=== PATIENT | male | born 1955 | race Caucasian/White ===

== ENCOUNTER 2016-10-22 14:07 | Emergency (ER) | payer OTHER ==
[2016-10-22 14:18] VITALS: BP 137/64
--- NOTE | 2016-10-22 15:15 | UC ---
Addy Whitt Rebecca, scribed for Isabel Leon MD on 10/22/16 at 1437 . Back Pain HPI - HPI Summary HPI Summary: Pt is a 61 y/o M who presents to [facility] c/o lumbar back pain. Pain began suddenly at 0800 this morning while bending over. Pain is discrete to the lumbar back without radiation and is currently moderate, ranked 3/10 and characterized as stabbing initially and now stiffness/ache. Reports he can feel his low back spasming. Has been treating the pain with Ibuprofen (600 mg this a.m. and 600 mg this afternoon) and "really old" Flexeril which he believes was too old to be effective. Additionally applied ice and a heating pad. Sx aggravated by position change, sitting and laying down, alleviated by walking and heat. Denies any weakness, hematuria and bowel or bladder incontinence. Negative remote trauma. Prior episode of back pain 14 years ago while helping somebody push their car, which was alleviated by Flexeril with no recurrences. Unsure if current sx are similar to prior episode of back pain. Confirms he has been able to previously tolerate narcotics without nausea. No leg weakness Pt's medications reviewed at this visit - History of Current Complaint Chief Complaint: UCBackPain Stated Complaint: BACK PAIN Time Seen by Provider: 10/22/16 14:36 Hx Obtained From: Patient Onset/Duration: Sudden Onset, Lasting Hours, Still Present Severity Currently: Mild Pain Intensity: 3 Pain Scale Used: 0-10 Numeric Back Pain: Is Discrete @ - Lumbar back Character: Sharp - Initially, Aching, Spasmodic, Stiffness Alleviating: Heat Associated Signs And Symptoms: Positive: Negative. Negative: Weakness, Bladder Incontinence, Bowel Incontinence Related History: Previous Back Injury - 14 years ago, unsure if current sx are similar to prior episode - Allergies/Home Medications Allergies/Adverse Reactions: Allergies Allergy/AdvReac Type Severity Reaction Status Date / Time Ciprofloxacin [From Cipro] Allergy Mild Rash Verified 10/22/16 14:19 ENVIRONMENTAL/SEASONAL Allergy SNEEZE,RUNNY Uncoded 08/21/15 11:51 HAYFEVER NOSE, ITCHY WATERY EYES, CONGESTION Home Medications: Home Medications Cyclobenzaprine TAB* [Flexeril 10 MG TAB*] 10 mg PO PRN 10/22/16 [History] PMH/Surg Hx/FS Hx/Imm Hx Previously Healthy: Yes Endocrine History: Dyslipidemia - HLD Cardiovascular History: Hypertension GI/ History: Other Other GI/ History: IBS - Surgical History Surgical History: Yes Surgery Procedure, Year, and Place: L achillies ruptur repair - Family History Known Family History: Positive: Other - Peptic ulcer disease - Social History Lives: With Family Alcohol Use: Daily Alcohol Amount: 1-2 BEERS Substance Use Type: None Smoking Status (MU): Never Smoked Tobacco Review of Systems Constitutional: Negative Skin: Negative Eyes: Negative ENT: Negative Respiratory: Negative Cardiovascular: Negative Gastrointestinal: Negative Genitourinary: Negative Motor: Negative Neurovascular: Negative Musculoskeletal: Other: - low back, lumbar pain Neurological: Negative Psychological: Negative All Other Systems Reviewed And Are Negative: Yes - Comments Additional Review of Systems Comments: NEGATIVE: Any weakness, hematuria and bowel or bladder incontinence. Physical Exam Triage Information Reviewed: Yes Appearance: Well-Appearing, Well-Nourished, Pain Distress - mild discomfort with movement, position changes Vital Signs: Initial Vital Signs Temp 98.5 F 10/22/16 14:12 Pulse 63 10/22/16 14:12 Resp 16 10/22/16 14:12 BP 137/64 10/22/16 14:12 Pulse Ox 98 10/22/16 14:12 Vital Signs Reviewed: Yes Eye Exam: Normal ENT: Positive: Hearing grossly normal Neck: Positive: Supple, Nontender Respiratory: Positive: Chest non-tender, Lungs clear, Normal breath sounds, No respiratory distress, No accessory muscle use Cardiovascular Exam: Normal Cardiovascular: Positive: RRR, No Murmur, Other: - 2+ DP, PT Musculoskeletal: Positive: Other: - + SLE with mild discomfort left low leatha + flex/ext knee b/l with mild discomfort low back no pain spinous process c/t/l/s + mild paraspinal tenderness low, lumbar area with direct palp Neurological Exam: Normal Neurological: Positive: Alert, Muscle Tone Normal, Other: - 2+ patellar b/l without clonus + b/l equal sensation throughout Psychological Exam: Normal Psychological: Positive: Normal Response To Family Skin Exam: Normal Back Pain Course/Dx - Course Course Of Treatment: Patient medications reviewed this visit. Pt with mild lower lumbar paraspinal muscle spasm s/p twisting and bending this morning. Pt neurovascular intact without radicular sx. recommend motrin/apap. flexerol. norco prn. d/w pt precautions with Traer. heat. stretch. return precautions reviewed. pt comfortable and in agreement with plan - Differential Dx/Diagnosis Provider Diagnoses: lumbar paraspinal muscle spasm Discharge - Discharge Plan Condition: Stable Disposition: HOME Prescriptions: Cyclobenzaprine TAB* [Flexeril 10 MG TAB*] 5 mg PO TID PRN #15 tab PRN Reason: Spasms HYDROcodone/ACETAMIN 5-325 MG* [Traer 5-325 TAB*] 1 - 2 tab PO Q8H PRN #15 tab MDD 6 PRN Reason: Pain Patient Education Materials: Low Back Strain (ED), Lower Back Exercises (ED) Referrals: Aguila Simpson MD [Medical Doctor] - Malorie Robertson MD [Medical Doctor] - Additional Instructions: - Okay to alternate ibuprofen (Advil, Motrin) 600mg and Tylenol product ( Tylenol or Traer) every 3hours as needed for pain. Take with food. Do NOT take for more than 4-[address], operate machinery or drink alcohol while taking Traer. This medication may cause constipation - use a stool softner as needed. Do not take while taking Clonazepam -Take Flexeril - muscle relaxer as prescribed - do NOT drive, operate machinery or drink alcohol while taking Flexeril. Do NOT Take flexeril within 6 hours of taking clonazepam -Apply moist heat to your back for 20 minutes at a time, 4-5 times a day. Once your muscles are warm, slow gentle stretching exercises are important -Contact your doctor today to arrange a follow-up appointment next week. -If you pain is uncontrolled , you develop numbness or tingling down your legs or changes to bowel or bladder - go to an emergency department for further testing The documentation as recorded by the Addy ashraf Rebecca accurately reflects the service I personally performed and the decisions made by me, Isabel Leon MD.
== END 2016-10-22 15:08 | disposition home or self-care (01) ==
LOC: UCEAST 14:07
DX: M62.830 Muscle spasm of back (principal); E78.5 Hyperlipidemia, unspecified; I10 Essential (primary) hypertension
CPT/HCPCS: 99212; G0463

== ENCOUNTER 2018-09-20 06:26 | Day surgery (SDC) | payer OTHER ==
--- NOTE | 2018-09-12 17:45 | HP ---
PREOPERATIVE HISTORY AND PHYSICAL: DATE OF SURGERY/ADMISSION: 09/20/18 [facility] DATE OF OFFICE VISIT/ENCOUNTER: 08/21/18 ATTENDING SURGEON: Antoinette Castro MD * (DICTATED BY FLORENCIA VELA) PROCEDURE: Arthroscopy left wrist, triangular fibrocartilage complex debridement. HISTORY OF PRESENT ILLNESS: This is a 63-year-old male who has had ongoing bilateral wrist pain, left worse than right, which began after playing golf in September 2017. He was hitting golf balls out of tall grass and started to develop wrist pain bilaterally. He had an MRI arthrogram performed for ulnar-sided wrist pain, which showed degenerative TFCC tears in both wrists. He has attended physical therapy. He has tried taping his wrists. He also has tried not golfing and the pain does seem to lessen; however, it has not gone away and he is not able to do the things he would like to do. He has, at this time, consented to proceed with surgical intervention for his left wrist in the form of an arthroscopy and a TFCC debridement. PAST MEDICAL HISTORY: 1. Hypertension. 2. Asthma/allergies. 3. GERD. 4. Hypercholesterolemia. PAST SURGICAL HISTORY: 1. Left Achilles tendon repair. 2. Three colon polyps removed. CURRENT MEDICATIONS: 1. Albuterol 2 puffs 4 times a day p.r.n. 2. Atenolol 25 mg half tab daily. 3. Claritin 5 mg daily. 4. Desloratadine 5 mg daily. 5. Fenofibrate 145 mg daily. 6. Fish oil Burpless 1000 mg 2 tabs daily. 7. Klonopin 1 mg 1-1/2 tabs q.h.s. 8. Levocetirizine dihydrochloride 5 mg daily. 9. Lumigan 0.01% one drop q.h.s. 10. Magnesium 500 mg daily. 11. Naproxen 500 mg q.12 hours p.r.n. 12. Nexium 40 mg daily. 13. Protopic 0.1% apply topically every day p.r.n. 14. Systane 0.4%/0.3% one drop each eye p.r.n. 2 hours. 15. Valsartan/hydrochlorothiazide 80/12.5 mg daily. 16. Voltaren 1% 2 g to affected area twice a day p.r.n. 17. Zetia 10 mg 1 tab daily. ALLERGIES: CIPROFLOXACIN and PRAVASTATIN, both cause hives/rash. FAMILY MEDICAL HISTORY: Diabetes, heart disease, cancer. SOCIAL HISTORY: The patient is employed at [employer], he teaches tumbling and gymnastics. He denies tobacco use and recreational drug use. He drinks alcohol on occasion. REVIEW OF SYSTEMS: Negative for general, cephalic, cardiovascular, respiratory , GI, , other musculoskeletal, integumentary, endocrine, neurologic and hematologic symptoms. Infectious Disease: Negative for MRSA, hepatitis C, HIV. PHYSICAL EXAMINATION GENERAL: Well-developed, well-nourished 63-year-old male, in no acute distress. VITAL SIGNS: Height 5 feet 7 inches, weight 180 pounds, pulse rate 68, blood pressure 132/70. HEENT: Normocephalic, atraumatic. Pupils are equal, round, and reactive to light and accommodation. Extraocular movements are intact. Throat is clear. NECK: Supple. No palpable lymph nodes. PULMONARY: Lungs are clear to auscultation bilaterally. No wheezes, rales, or rhonchi. CARDIOVASCULAR: Regular rate and rhythm. S1, S2. No murmurs, rubs, or gallop. No edema. ABDOMEN: Positive bowel sounds, soft, and nontender. MUSCULOSKELETAL: On exam of his bilateral wrists, there is no swelling, no ecchymosis. He has tenderness to palpation at the distal radial ulnar joint and just past the distal ulna. He has pain resisting wrist ulnar deviation. He has increased pain with full extension with weightbearing. He has good motion in his fingers. Skin is intact. Neurovascular function is intact. NEUROLOGICAL: Alert and oriented x3. Cranial nerves II through XII are intact. Sensation is intact to light touch. IMAGING STUDIES: X-rays AP, lateral and oblique of both wrists show very slight ulnar positive variance, but otherwise looked normal. MRI of bilateral wrists show degenerative TFCC tears. IMPRESSION: Left wrist triangular fibrocartilage complex degenerative tear. PLAN: The patient is scheduled to undergo an arthroscopy of left wrist with TFCC debridement with Dr. Castro on 09/20/18. He will return to the office 10 days postop for followup and suture removal. A prescription for Ultracet was e- scribed to the patient's pharmacy for postoperative pain management. FLORENCIA VELA [id number]/[facility] #: [id number] ALICIA
[~2018-09-20 06:26] MED LIST: Buffered Lidocaine 1% SYRIN* 1 ML/SYRINGE INTRADERM ONE; Dexamethasone IV* 4 MG/ML 1 ML (4 MG) IV SLOW PU ONE; Famotidine IV* 10 MG/ML 2 ML (20 mg) IV ONE; Lactated Ringers 1000 ML Bag* 1,000 ML IV SCH
[2018-09-20] MEDS ORDERED: Dexamethasone IV* 4 MG/ML 1 ML (4 MG) ONE (06:35)
[2018-09-20] MEDS ORDERED: Famotidine IV* 10 MG/ML 2 ML (20 mg) ONE (06:35)
[2018-09-20] MEDS ORDERED: Lidocaine 0.5%* 50 ML SDV ONE (07:09)
[2018-09-20] MEDS ORDERED: Midazolam* 1 MG/ML 2 ML VIAL (2 MG) ONE (07:12)
[2018-09-20] MEDS ORDERED: fentaNYL* 50 MCG/ML 2 ML VIAL (100 MCG VIAL) ONE (07:12)
[2018-09-20] MEDS ORDERED: Buffered Lidocaine 1% SYRIN* 1 ML/SYRINGE INTRADERM ONE (07:17)
[2018-09-20] MEDS ORDERED: Bupivacaine 0.5% SDV PF* 30ML VIAL ONE (07:20)
[2018-09-20] MEDS ORDERED: Ketorolac INJ* 30 MG/ML 1 ML VIAL IV PRN (08:00)
[2018-09-20] MEDS ORDERED: Ondansetron INJ* 2 MG/ML VIAL IV PRN (08:00)
[2018-09-20] MEDS ORDERED: Naloxone* 0.4 MG/ML 1 ML VIAL IV PRN (08:00)
[2018-09-20] MEDS ORDERED: fentaNYL* 50 MCG/ML 2 ML VIAL (100 MCG VIAL) IV PRN (08:00)
[2018-09-20 08:52] VITALS: BP 109/73
--- NOTE | 2018-09-20 17:12 | OP ---
DATE OF OPERATION: 09/20/18 [facility] DATE OF : 59 SURGEON: Antoinette Castro MD BONBON DIPPER: FLORENCIA Lynn ANESTHESIA: IV regional. PRE-OP DIAGNOSIS: Triangular fibrocartilage complex tear of the left wrist. POST-OP DIAGNOSES: 1. Triangular fibrocartilage complex tear of the left wrist. 2. Scapholunate ligament tear with degenerative arthritis. OPERATIVE PROCEDURE: Left wrist arthroscopy and triangular fibrocartilage complex debridement. ESTIMATED BLOOD LOSS: Zero. TOURNIQUET TIME: About 35 minutes. INDICATIONS FOR PROCEDURE: David is a 63-year-old man who has bilateral wrist pain and stiffness. He has had increased wrist pain in the left since injuring his wrist while golfing. He has failed conservative treatment, presents now for left wrist arthroscopy and debridement. DESCRIPTION OF PROCEDURE: The patient was brought to the operating room, was given an IV regional anesthetic with a tourniquet around his left upper arm. Skin of his left upper extremity was prepped and draped in the usual sterile fashion. The radiocarpal joint was filled with 10 cc of Marcaine 0.5% plain. A stab incision was made distal to Milton tubercle. We dissected bluntly through the subcutaneous tissue with a mosquito clamp. The arthroscope was then placed in the radiocarpal joint. There was a complete tear of the scapholunate ligament which was chronic and allowed access to the midcarpal joint from the radiocarpal joint. There were degenerative changes on the lunate but the capitate head articular surface was intact. The scaphoid fossa articular surface of the radius had some cartilage wear. The lunate fossa was intact. There was a complex tear of the TFCC. A second portal was created in the 4-5 interval and a 2.0 gator shaver was placed into the joint. The TFCC tear and surrounding synovitis was debrided. The arthroscopy instruments were removed and then the wounds were closed in an interrupted fashion with 4-0 nylon suture. The wound was dressed with Xeroform, 4x4, Webril, and an Cuauhtemoc wrap. The patient tolerated the procedure well and was brought to the recovery room in good condition. [id number]/[facility] #: [id number] [facility]
== END 2018-09-20 09:18 | disposition home or self-care (01) ==
LOC: OREAST 06:26
PROVIDERS: ATTEND Orthopaedic Surgery
DX: S63.592A Other specified sprain of left wrist, initial encounter (principal); I10 Essential (primary) hypertension; J45.909 Unspecified asthma, uncomplicated; K21.9 Gastro-esophageal reflux disease without esophagitis; E78.00 Pure hypercholesterolemia, unspecified; X50.9XXA Other and unspecified overexertion or strenuous movements or postures, initial encounter; Y93.53 Activity, golf; Y92.39 Other specified sports and athletic area as the place of occurrence of the external cause
CPT/HCPCS: J1100; J2250; J3010; J3490

== ENCOUNTER 2019-05-10 06:57 | Day surgery (SDC) | payer OTHER ==
[~2019-05-10 06:57] MED LIST changes: +Acetaminophen TAB* 325 MG PO PRN; -Dexamethasone IV* 4 MG/ML 1 ML (4 MG) IV SLOW PU ONE; -Famotidine IV* 10 MG/ML 2 ML (20 mg) IV ONE; -Lactated Ringers 1000 ML Bag* 1,000 ML IV SCH; +mitoMYcin PWD* 0.2 MG in Sterile Water for Inj* 1 ML OPHTHALMIC SCH
[2019-05-10] MEDS ORDERED: Carbachol 0.01% OPH.SOL* 1.5 ML OPHTH.SOLN ONE (07:18)
[2019-05-10] MEDS ORDERED: Midazolam* 1 MG/ML 2 ML VIAL (2 MG) ONE ×2 (08:26→08:37)
[2019-05-10] MEDS ORDERED: Povidone Iodine 5% OPTH* 30 ML BTL ONE ×2 (09:29→10:08)
[2019-05-10] MEDS ORDERED: Ketorolac 0.5% OPHTH (NF) 0.5 % 5 ML BTL ONE (09:29)
[2019-05-10] MEDS ORDERED: acetaZOLAMIDE TAB* 250 MG ONE (09:29)
[2019-05-10] MEDS ORDERED: Phenylephrine OPHTH SOL 2.5%* 2 ML ONE (09:29)
[2019-05-10] MEDS ORDERED: Neomycin/Polymy/Dex OPTH.SUSP* MAXITROL 0.1% 5 ML ONE ×2 (09:29→10:08)
[2019-05-10] MEDS ORDERED: Lidocaine 2% w/ EPI 1:200,000* 20 ML SDV VIAL ONE ×2 (09:29→10:08)
[2019-05-10] MEDS ORDERED: Lidocaine 1% MPF ** 5 ML VIAL ONE ×2 (09:29→10:08)
[2019-05-10] MEDS ORDERED: Cyclopentolate 1% OPTH.SOL* 2 ML BTL ONE (09:29)
[2019-05-10] MEDS ORDERED: Proparacaine 0.5% OPHTH.SOL* 15 ML BTL ONE ×2 (09:30→10:08)
[2019-05-10 09:37] VITALS: BP 115/81
--- NOTE | 2019-05-10 13:21 | OP ---
DATE OF OPERATION: 05/10/19 [facility] DATE OF : 59 SURGEON: Ortiz Vergara MD ANESTHESIA: Local with MAC. PRE-OP DIAGNOSIS: Uncontrolled glaucoma, left eye. POST-OP DIAGNOSIS: Uncontrolled glaucoma, left eye. OPERATIVE PROCEDURE: XEN stent, left eye. COMPLICATIONS: None. DESCRIPTION OF PROCEDURE: The patient was prepped and draped in the usual sterile fashion. Lid speculum was placed. 6-0 silk traction suture placed through superior limbus, eye rotated inferiorly. Hernandez were made with the calipers at 7 and 2.5 mm posterior to the limbus at 12 o'clock. Paracentesis made at the 2 o'clock position. Anterior chamber irrigated with Miostat. XEN stent was checked, inserted subconjunctivally at the 7 mm james, advanced to engage sclera at the 2.5 mm james and then advanced into the anterior chamber and deployed using the solar installation manager. Immediate bleb formation developed. Mitomycin C 0.2 mg/mL, 0.2 mL injected subconjunctivally in the superior fornix. Anterior chamber irrigated with balanced salt solution. Gonioscopy used to confirm position and a traction suture removed. [id number]/[facility] #: [id number] [facility]
== END 2019-05-10 09:28 | disposition home or self-care (01) ==
LOC: OREAST 06:57
PROVIDERS: ATTEND Specialist
DX: H40.1123 Primary open-angle glaucoma, left eye, severe stage (principal); I10 Essential (primary) hypertension; E78.00 Pure hypercholesterolemia, unspecified; J30.2 Other seasonal allergic rhinitis; K21.9 Gastro-esophageal reflux disease without esophagitis; M19.90 Unspecified osteoarthritis, unspecified site
CPT/HCPCS: A9270-GY; C1725; J2250; J9280

== ENCOUNTER 2019-06-03 10:28 | Emergency (ER) | payer OTHER ==
--- OUTSIDE RECORDS SUMMARY | 2019-06-03 10:51 | XMS REPORT | Continuity of Care Document ---
:1955 External Reference #:[id number] Author Name KATHLEEN Cabezas (transmitted by agent of provider Tim Heredia) Address [address] [address] Care Team Providers Name Role Phone Malorie Robertson M.D. - Family Medicine Care Team Information Rooter Operator [phone] Problems Active Problems Provider Date Moderate persistent asthma with Tim Heredia MD Onset: 05/28/2015 (acute) exacerbation Allergic rhinitis due to pollen Tim Heredia MD Onset: 11/13/2015 Allergic rhinitis Tim Heredia MD Onset: 11/13/2015 Mild intermittent asthma KATHLEEN Cabezas Onset: 12/01/2016 Atopic dermatitis KATHLEEN Cabezas Onset: 12/01/2016 Upper respiratory infection KATHLEEN Cabezas Onset: 05/08/2019 Acute sinusitis KATHLEEN Cabezas Onset: 05/31/2018 Social History Type Date Description Comments Sex Unknown Tobacco Use Start: Unknown Patient has never smoked Smoking Status Reviewed: 05/08/19 Patient has never smoked Allergies, Adverse Reactions, Alerts Active Allergies Reaction Severity Comments Date Cipro 05/28/2015 Medications Active Medications SIG Qnty Indications Ordering Provider Date Levocetirizine take one tablet 30tabs Tim Freedman 03/08/2019 Dihydrochloride by mouth every MD Yan 5mg day in the Tablets evening Clarithromycin take one tablet 28tabs Tim Freedman 05/31/2018 500mg by mouth q12 MD Yan Tablets hours x14 days. Xopenex HFA 2 puffs every 4 15gm Tim A. 03/18/2018 45mcg/Act as needed MD Yan Aerosol Desloratadine Take One Tablet 30tabs J45.41 Bola Colunga, 01/24/2018 5mg Tablets By Mouth Every RPA-C Morning Xyzal 1 tab by mouth 90tabs J45.41 Tim A. 05/28/2015 5mg Tablets every evening MD Yan Prednisolone Acetate Instill 1 Drop Unknown 1% Into Left Eye Suspension Three Times A Day Taper as Directed Brimonidine Tartrate Insttill 1 Drop Unknown Into The Left 0.15% Solution Eye Two Times A Day Rocklatan Instill One Unknown 0.02-0.005% Drop Into Both Solution Eyes Every Night Magnesium 27 1 tablet daily Unknown 500(27Mg) mg Tablets Fish Oil/Super 4 capsules Unknown Potent/No Burp daily 1000mg Capsules Systane Unknown Atenolol take 1 tablet Unknown 25mg Tablets (25 mg) by oral route once daily Diovan take 1 tablet Unknown 80mg Tablets (80 mg) by oral route once daily Nexium Unknown 40mg Capsules DR Clonazepam take 1 tablet Unknown 0.5mg Tablets (0.5 mg) by oral route 2 times per day Zetia take 1 tablet Unknown 10mg Tablets (10 mg) by oral route once daily Fenofibrate take 1 tablet Unknown 160mg Tablets (160 mg) by oral route once daily Immunizations Description No Information Available Vital Signs Date Vital Result Comment 05/08/2019 4:40pm BP Systolic 166 mmHg BP Diastolic 95 mmHg Height 67 inches 5'7" Weight 180.00 lb BMI (Body Mass Index) 28.2 kg/m2 Heart Rate 65 /min Respiratory Rate 16 /min Body Temperature 97.4 F O2 % BldC Oximetry 96 % 06/20/2018 9:34am BP Systolic 120 mmHg BP Diastolic 80 mmHg Height 67 inches 5'7" Weight 180.00 lb BMI (Body Mass Index) 28.2 kg/m2 Heart Rate 61 /min Respiratory Rate 18 /min Body Temperature 96.5 F O2 % BldC Oximetry 98 % Results Test Acquired Date Facility Test Result H/L Range Note Laboratory test 05/08/2019 [facility] <pending> finding [address] [place] [address] [phone] Order 05/08/2019 [facility] Nitric Oxide <pending> Procedures Date Code Description Status 05/08/2019 98680 Nitric Oxide Gas Determination Completed Medical Devices Description No Information Available Encounters Type Date Location Provider Dx Diagnosis Office Visit 05/08/2019 [facility] Lyric Santos J06.9 Acute upper 4:30p Fenstermacher, respiratory infection, RPA-C unspecified Assessments Date Code Description Provider 05/08/2019 J06.9 Acute upper respiratory infection, Lyric Bergerstermacher, RPA-C unspecified Plan of Treatment 05/08/2019 - Lyric Bergerstermmireya, RPA-CJ06.9 Acute upper respiratory infection, unspecifiedComments:Patient with URI. Patient is scheduled for eye surgery later this week. I will order rapid respiratory panel to screen for Influenza or atypical bacterial infection. I suspect patient has the common cold. He can continue supportive care and Xopenex Q4 hours as needed for breakthrough cough or chest congestion. If patient develops fever or worsening respiratory symptoms, I would advise rescheduling his surgery.Follow up:If condition worsens. Functional Status Description No Information Available Mental Status Description No Information Available Referrals Description No Information Available
--- OUTSIDE RECORDS SUMMARY | 2019-06-03 10:51 | XMS REPORT | Continuity of Care Document ---
:1955 External Reference #:[id number] Author Name Ortiz Vergara M.D. Address [address] [place] [address] Care Team Providers Name Role Phone Malorie Hale M.D. - Family Medicine Care Team Information Aviation Safety Technician [phone] Dane Kendall M.D. - Neurology Care Team Information Aviation Safety Technician [phone] Problems Active Problems Provider Date Pure hypercholesterolemia Onset: Essential hypertension Onset: Eczema Onset: Seasonal allergy Onset: Primary open angle glaucoma Marissa Leon O.D. Onset: 10/24/2014 Severe / Advanced / End Stage Glaucoma Marissa Leon O.D. Onset: 2014 Primary open angle glaucoma of left eye Ortiz Vergara M.D. Onset: 2016 Primary open angle glaucoma of right eye Ortiz Vergara M.D. Onset: 2016 Social History Type Date Description Comments Sex Unknown ETOH Use Consumes 1-2 glasses of wine per day Tobacco Use Start: Unknown Patient has never smoked Recreational Drug Use Denies Drug Use Smoking Status Reviewed: 06/01/19 Patient has never smoked Allergies, Adverse Reactions, Alerts Active Allergies Reaction Severity Comments Date Cipro ACTING OUT MY DREAMS 10/24/2014 Medications Active Medications SIG Qnty Indications Ordering Provider Date Prednisolone Acetate 1 drops left 10ml Ortiz Vergara, 04/17/2019 1% eye three times M.D. Suspension a day. taper as directed Brimonidine Tartrate 1 drop right 45ml Vicki Knight, 12/02/2018 eye twice a day O.D. 0.15% Solution Rocklatan 1 drop right 2.5units Ortiz Vergara, 10/30/2018 0.02-0.005% eye at night M.DConrado Solution Systane as needed Marissa Leon, 10/23/2014 0.4-0.3% Solution O.D. Vitamin D Unknown 2000Unit Capsules Magnesium Unknown 250mg Tablets Zetia Unknown 10mg Tablets Fish Oil 1 by mouth Unknown 1000mg Capsules every day Proair HFA Inhale Two Unknown 108(90Base) Puffs By Mouth mcg/Act Aerosol Every 4 Hours as Needed Clonazepam Dane Kendall, 1mg Tablets M.Radha Valsartan-Hydrochlorot Malorie Hale M.D. hiazide 80-12.5mg Tablets Fenofibrate Malorie Hale M.D. 54mg Tablets Desloratadine Yan, 5mg Tablets Tim Sands M.D. Atenolol Malorie Hale M.D. 12.5mg Tablets Nexium Malorie Hale M.D. 40mg Capsules Levocechantaleiztalisha Heredia, Dihydrochloride Birdie Yadavmg Elizabeth Tablets History Medications Vigamox one drop left eye 3ml Ortiz Vergara, 04/17/2019 - 0.5% Solution three times a day, M.DConrado 05/31/2019 start the day before surgery Immunizations Description No Information Available Vital Signs Date Vital Result Comment 08/02/2017 4:08pm BP Systolic 122 mmHg BP Diastolic 72 mmHg Heart Rate 72 /min Respiratory Rate 16 /min Results Description No Information Available Procedures Date Code Description Status 05/10/2019 02440 Insert Anterior Segment Aqueous Drainage Device W/Out Ext Completed Approac 04/17/2019 93939 Est Patient Intermediate Exam Completed 02/13/2019 46032 Visual Field Exam Extended Completed 02/13/2019 63855 Est Patient Intermediate Exam Completed 01/03/2019 74414 Est Patient Intermediate Exam Completed Medical Devices Description No Information Available Encounters Description No Information Available Assessments Date Code Description Provider 06/01/2019 H40.1123 Primary open-angle glaucoma, left eye, Ortiz Vergara M.D. severe stage 06/01/2019 H40.1112 Primary open-angle glaucoma, right eye, Ortiz Vergara M.D. moderate stage 05/18/2019 H40.1123 Primary open-angle glaucoma, left eye, Ortiz Vergara M.D. severe stage 05/18/2019 H40.1112 Primary open-angle glaucoma, right eye, Ortiz Vergara M.D. moderate stage 05/11/2019 H40.1123 Primary open-angle glaucoma, left eye, Ortiz Vergara M.D. severe stage 05/10/2019 H40.1123 Primary open-angle glaucoma, left eye, Ortiz Vergara M.D. severe stage 04/17/2019 H40.1123 Primary open-angle glaucoma, left eye, Ortiz Vergara M.D. severe stage 04/17/2019 H40.1112 Primary open-angle glaucoma, right eye, Ortiz Vergara M.D. moderate stage 02/13/2019 H40.1123 Primary open-angle glaucoma, left eye, Ortiz Vergara M.D. severe stage 02/13/2019 H40.1112 Primary open-angle glaucoma, right eye, Ortiz Vergara M.D. moderate stage 01/03/2019 H40.1123 Primary open-angle glaucoma, left eye, Ortiz Vergara M.D. severe stage 01/03/2019 H40.1112 Primary open-angle glaucoma, right eye, Ortiz Vergara M.D. moderate stage Plan of Treatment 06/01/2019 - Ortiz Vergara M.D.H40.1123 Primary open-angle glaucoma, left eye , severe stageComments:Smoking can increase the risk of developing or worsening any eye related disease, as well as affect your overall health. If you are a smoker, we strongly recommend that you quit.If you are not a smoker, we strongly recommend that you do not start.H40.1112 Primary open-angle glaucoma, right eye, moderate stage Functional Status Description No Information Available Mental Status Description No Information Available Referrals Description No Information Available
--- OUTSIDE RECORDS SUMMARY | 2019-06-03 10:51 | XMS REPORT | Continuity of Care Document ---
:1955 External Reference #:[id number] Author Name Ortiz Vergara M.D. Address [address] [place] [id number] Care Team Providers Name Role Phone Malorie Hale M.D. - Family Medicine Care Team Information Reading Instructor [phone] Dane Kendall M.D. - Neurology Care Team Information Reading Instructor [phone] Problems Active Problems Provider Date Pure hypercholesterolemia [...] Use Denies Drug Use Smoking Status Reviewed: 05/18/19 Patient has never smoked Allergies, Adverse Reactions, Alerts Active Allergies Reaction Severity Comments Date Cipro ACTING OUT MY DREAMS 10/24/2014 Medications Active Medications SIG Qnty Indications Ordering Provider Date Vigamox one drop left 3ml Ortiz Vergara, 04/17/2019 0.5% Solution eye three times M.D. a day, start the day before surgery Prednisolone Acetate 1 drops left 10ml Ortiz Vergraa, 04/17/2019 1% eye three times M.D. Suspension a day. taper as directed Brimonidine Tartrate 1 drop right 45ml Vicki Knight, 12/02/2018 eye twice a day O.D. 0.15% Solution Rocklatan 1 drop right 2.5units Ortiz Vergara, 10/30/2018 0.02-0.005% eye at night M.D. Solution Systane as needed Marissa Leon, 10/23/2014 0.4-0.3% Solution O.D. Vitamin D Unknown 2000Unit Capsules Magnesium Unknown 250mg Tablets Zetia Unknown 10mg Tablets Fish Oil 1 by mouth Unknown 1000mg Capsules every day Proair HFA Inhale Two Unknown 108(90Base) Puffs By Mouth mcg/Act Aerosol Every 4 Hours as Needed Clonazepam Dane Kendall, 1mg Tablets M.DConrado Valsartan-Hydrochlorot Malorie Hale M.D. hiazide 80-12.5mg Tablets Fenofibrate Malorie Hale M.D. 54mg Tablets Desloratadine Yan, 5mg Tablets Tim Sands M.D. Atenolol Malorie Hale M.D. 12.5mg Tablets Nexium Malorie Hale M.D. 40mg Capsules DR Levocetiriztalisha Heredia, Dihydrochloride Birdie Yadavmg Elizabeth Tablets Immunizations Description No Information Available Vital Signs Date Vital Result Comment 08/02/2017 4:08pm BP Systolic 122 mmHg BP Diastolic 72 mmHg Heart Rate 72 /min Respiratory Rate 16 /min Results Description No Information Available Procedures Date Code Description Status 05/10/2019 57246 Insert Anterior Segment Aqueous Drainage Device W/Out Ext Completed Approac 04/17/2019 79293 Est Patient Intermediate Exam Completed 02/13/2019 62891 Visual Field Exam Extended Completed 02/13/2019 44510 Est Patient Intermediate Exam Completed 01/03/2019 16261 Est Patient Intermediate Exam Completed Medical Devices Description No Information Available Encounters Type Date Location Provider Dx Diagnosis Office Visit 11/22/2018 Ortiz Vergara, Vicki Knight, H40.1123 Primary 10:45a , deepthi Robertson. open-angle glaucoma, left eye, severe stage H40.1112 Primary open-angle glaucoma, right eye, moderate stage Assessments Date Code Description Provider 05/18/2019 H40.1123 Primary open-angle glaucoma, left eye, [...] 04/17/2019 H40.1112 Primary open-angle glaucoma, right eye, rOtiz Vergara M.D. moderate stage 02/13/2019 H40.1123 Primary open-angle glaucoma, left eye, Ortiz Vergara M.D. severe stage 02/13/2019 H40.1112 Primary open-angle glaucoma, right eye, Ortiz Vergara M.D. moderate stage 01/03/2019 H40.1123 Primary open-angle glaucoma, left eye, Ortiz Vergara M.D. severe stage 01/03/2019 H40.1112 Primary open-angle glaucoma, right eye, Ortiz Vergara M.D. moderate stage 11/22/2018 H40.1123 Primary open-angle glaucoma, left eye, Vicki Knight O.D. severe stage 11/22/2018 H40.1112 Primary open-angle glaucoma, right eye, Vicki Knight O.D. moderate stage Plan of Treatment 05/18/2019 - Ortiz Vergara M.D.H40.1123 Primary open-angle glaucoma, left eye , severe stageComments:Smoking can increase the risk of developing or worsening any eye related disease, as well as affect your overall health. If you are a smoker, we strongly recommend that you quit.If you are not a smoker, we strongly recommend that you do not start. STOP VIGAMOX CONTINUE PREDNISOLONE IN THE LEFT EYE CONTINUE YOUR DROPS IN THE RIGHT EYEFollow up:2 Week Follow Up IOP Check At your next visit, we are not planning to dilate your eyes. However , if you have any changes in your vision or new symptoms, there are certain situations that require us to dilate your eyes. If Dr. Vergara requests any additional testing, that may require extra time. If youhave any questions before your next appointment, please call our office at .h40.1112 Primary open-angle glaucoma, right eye, moderate stage Functional Status Description No Information Available Mental Status Description No Information Available Referrals Description No Information Available
--- OUTSIDE RECORDS SUMMARY | 2019-06-03 10:51 | XMS REPORT | Continuity of Care Document ---
:1955 External Reference #:[id number] Author Name Ortiz Vergara M.D. Address [address] [place] [id number] Care Team Providers Name Role Phone Malorie Hale M.D. - Family Medicine Care Team Information Audit Associate [phone] Dane Kendall M.D. - Neurology Care Team Information Audit Associate [phone] Problems Active Problems Provider Date Pure hypercholesterolemia [...] Use Denies Drug Use Smoking Status Reviewed: 04/17/19 Patient has never smoked Allergies, Adverse Reactions, [...] taper as directed Brimonidine Tartrate 1 drop Both 45ml Vicki Knight, 12/02/2018 Eyes twice a O.D. 0.15% Solution day Rocklatan Instill One 2.5units Ortiz Vergara, 10/30/2018 0.02-0.005% Drop Into Both M.D. Solution Eyes Every Night Systane as needed Marissa Leon, 10/23/2014 0.4-0.3% Solution O.D. Vitamin D Unknown 2000Unit Capsules Magnesium Unknown 250mg Tablets Zetia Unknown 10mg Tablets Fish Oil 1 by mouth Unknown 1000mg Capsules every day Proair HFA Inhale Two Unknown 108(90Base) Puffs By Mouth mcg/Act Aerosol Every 4 Hours as Needed Clonazepam Dane Kendall, 1mg Tablets M.DConrado Valsartan-Hydrochlorot OsMalorie butts M.D. hiazide 80-12.5mg Tablets Fenofibrate Malorie Hale M.D. 54mg Tablets Desloratadine Yan, 5mg Tablets Tim Sands M.D. Atenolol Malorie Hale M.D. 12.5mg Tablets Nexium Malorie Hale M.D. 40mg Capsules DR Levocetiriztalisha Heredia, Dihydrochloride Tim Sands 5mg Jean-Claude.Radha Tablets History Medications Rocklatan One Drop Both 7.5ml H40.1123 Ortiz Barnett 10/31/2018 - 0.02-0.005% Eyes Every Arleo, M.D. 11/21/2018 Solution Night Immunizations Description No Information Available Vital Signs Date Vital Result Comment 08/02/2017 4:08pm BP Systolic 122 mmHg BP Diastolic 72 mmHg Heart Rate 72 /min Respiratory Rate 16 /min Results Description No Information Available Procedures Date Code Description Status 02/13/2019 14518 Visual Field Exam Extended Completed 02/13/2019 73691 Est Patient Intermediate Exam Completed 01/03/2019 13117 Est Patient Intermediate Exam Completed Medical Devices Description No Information Available Encounters Type Date Location Provider Dx Diagnosis Office Visit 11/22/2018 Ortiz Vergara, Vicki Knight, H40.1123 Primary 10:45a , deepthi Robertson. open-angle glaucoma, left eye, severe stage H40.1112 Primary open-angle glaucoma, right eye, moderate stage Office Visit 10/31/2018 9:30a Ortiz Barnett H40.1123 Primary MD Ursula, deepthi Vergara M.D. open-angle glaucoma, left eye, severe stage H40.1112 Primary open-angle glaucoma, right eye, moderate stage Assessments Date Code Description Provider 04/17/2019 H40.1123 Primary open-angle glaucoma, left eye, [...] right eye, Vicki Knight O.D. moderate stage 10/31/2018 H40.1123 Primary open-angle glaucoma, left eye, Ortiz Vergara M.D. severe stage 10/31/2018 H40.1112 Primary open-angle glaucoma, right eye, Ortiz Vergara M.D. moderate stage Plan of Treatment Future Appointment(s):05/18/2019 10:15 am - Ortiz Vergara M.D. at Ortiz Vergara [facility], 05/11/2019 9:30 am - Ortiz Vergara M.D. at Ortiz Vergara [facility], 05/10/2019 7:00 am - Ortiz Vergara M.D. at Ortiz [facility]ergara [facility], 2019 - Ortiz Vergara M.D.H40.1123 Primary open-angle glaucoma, left eye, severe stageComments:Smoking can increase the risk of developing or worsening any eye related disease, as well as affect your overall health. If you are a smoker, we strongly recommend that you quit.If you are not a smoker, we strongly recommend that you do not start. START THE PREDNISONE DROPS THREE TIMES A DAY IN YOURLEFT EYE STARTING THE WEDNESDAY BEFORE YOUR SURGERYSTART THE VIGAMOX THREE TIMES A DAY IN YOUR LEFT EYE STARTING THE DAY BEFORE YOUR SURGERYSTOP THE FISH OIL 1 WEEK BEFORE YOUR [id number] Primary open-angle glaucoma, right eye, moderate stage Functional Status Description No Information Available Mental Status Description No Information Available Referrals Description No Information Available
--- OUTSIDE RECORDS SUMMARY | 2019-06-03 10:51 | XMS REPORT | Continuity of Care Document ---
:1955 External Reference #:[id number] Author Name Ortiz Vergara M.D. Address [address] [place] [id number] Care Team Providers Name Role Phone Malorie Hale M.D. - Family Medicine Care Team Information Recovery Specialist [phone] Dane Kendall M.D. - Neurology Care Team Information Recovery Specialist [phone] Problems Active Problems Provider Date Pure hypercholesterolemia [...] Use Denies Drug Use Smoking Status Reviewed: 05/11/19 Patient has never smoked Allergies, Adverse Reactions, [...] night M.D. Solution Systane as needed Marissa Melvin Carolyn, 10/23/2014 0.4-0.3% Solution O.D. Vitamin D Unknown [...] DR Levocetiriztalisha Heredia, Dihydrochloride Tim Sands 5mg Elizabeth Tablets Immunizations Description No Information Available Vital Signs Date Vital Result Comment 08/02/2017 4:08pm BP Systolic 122 mmHg BP Diastolic 72 mmHg Heart Rate 72 /min Respiratory Rate 16 /min Results Description No Information Available Procedures Date Code Description Status 04/17/2019 05202 Est Patient Intermediate Exam Completed 02/13/2019 34235 Visual Field Exam Extended Completed 02/13/2019 06375 Est Patient Intermediate Exam Completed 01/03/2019 31713 Est Patient Intermediate Exam Completed Medical Devices Description No Information Available Encounters Type Date Location Provider Dx Diagnosis Office Visit 11/22/2018 Ortiz Vergara, Vicki Knight, H40.1123 Primary 10:45a , pc O.D. open-angle glaucoma, left eye, severe stage H40.1112 Primary open-angle glaucoma, right eye, moderate stage Assessments Date Code Description Provider 05/11/2019 H40.1123 Primary open-angle glaucoma, left eye, [...] Knight O.D. moderate stage Plan of Treatment Future Appointment(s):05/18/2019 10:15 am - Ortiz Vergara M.D. at Ortiz Vergara MD, 05/11/2019 - Ortiz Vergara M.D.H40.1123 Primary open-angle glaucoma, left eye, severe stageComments:Smoking can increase the risk of developing or worsening any eye related disease, as well as affect your overall health. If you are a smoker, we strongly recommend that you quit.If you are not a smoker, we strongly recommend that you do not start. CONTINUE VIGAMOX IN YOUR LEFT EYE 3 TIMES A DAYCONTINUE PREDNISOLONE IN YOUR LEFT EYE 3 TIMES A DAY Functional Status Description No Information Available Mental Status Description No Information Available Referrals Description No Information Available
--- OUTSIDE RECORDS SUMMARY | 2019-06-03 10:51 | XMS REPORT | Continuity of Care Document ---
:1955 External Reference #:[id number] Author Name Ortiz Vergara M.D. (transmitted by agent of provider Lucy Norris) Address [address] [place] [phone] Care Team Providers Name Role Phone Malorie Hale M.D. - Family Medicine Care Team Information Museum Director [phone] Dane Kendall M.D. - Neurology Care Team Information Museum Director [phone] Problems Active Problems Provider Date Pure hypercholesterolemia [...] night M.DConrado Solution Systane as needed Marissa PlattConrado Leon, 10/23/2014 0.4-0.3% Solution O.D. Vitamin D [...] Heredia, Dihydrochloride Tim Sands 5mg Elizabeth Tablets History Medications Vigamox one drop [...] Available Procedures Date Code Description Status 05/10/2019 98912 Insert Anterior Segment Aqueous Drainage Device W/Out Ext Completed Approac 04/17/2019 97450 Est Patient Intermediate Exam Completed 02/13/2019 36446 Visual Field Exam Extended Completed 02/13/2019 33389 Est Patient Intermediate Exam Completed 01/03/2019 01500 Est Patient Intermediate Exam Completed Medical Devices [...] H40.1112 Primary open-angle glaucoma, right eye, Ortiz Vegrara M.D. moderate stage 05/11/2019 H40.1123 Primary open-angle [...] H40.1123 Primary open-angle glaucoma, left eye, Ortiz eVrgara M.D. severe stage 01/03/2019 H40.1112 Primary open-angle glaucoma, right eye, Ortiz Vergara M.D. moderate stage Plan of Treatment Future Appointment(s):06/05/2019 3:00 pm - Ortiz Vergara M.D. at Ortiz Vergara [facility], 06/01/2019 - Ortiz Vergara M.D.H40.1123 Primary open-angle glaucoma, left eye, severe stageComments:Smoking can increase the risk of developing or worsening any eye related disease, as well as affect your overall health. If you are a smoker, we strongly recommend that you quit.If you are not a smoker, we strongly recommend that you do not start.H40.1112 Primary open- angle glaucoma, right eye, moderate stage Functional Status Description No Information Available Mental Status Description No Information Available Referrals Description No Information Available
[2019-06-03 11:02] VITALS: BP 125/77
--- NOTE | 2019-06-03 11:23 | UC ---
Laceration HPI - HPI Summary HPI Summary: 63 yo male presents with right hand laceration. He tells me that this morning he was washing a glass and it broke - he sustained a laceration to his right hand. Bandaged the area and came to . Last tetanus was on 2015. - History Of Current Complaint Chief Complaint: UCLaceration Stated Complaint: HAND LACERATION Time Seen by Provider: 06/03/19 11:23 Hx Obtained From: Patient Laceration Location: Hand Mechanism Of Injury: Sharp Trauma Onset/Duration: Sudden Onset Severity: Mild Pain Intensity: 2 Pain Scale Used: 0-10 Numeric - Allergies/Home Medications Allergies/Adverse Reactions: Allergies Allergy/AdvReac Type Severity Reaction Status Date / Time ciprofloxacin [From Cipro] Allergy Rash Verified 06/03/19 11:02 ENVIRONMENTAL/SEASONAL Allergy SNEEZE,RUNNY Uncoded 06/03/19 11:02 HAYFEVER NOSE, ITCHY WATERY EYES, CONGESTION Home Medications: Home Medications Desloratadine 5 mg PO QAM PRN 12/22/12 [History Confirmed 06/03/19] [place]-3/Dha/Epa/Fish Oil [Fish Oil 1,000 mg Softgel] 2,000 mg PO BID 12/22/12 [ History Confirmed 06/03/19] clonazePAM TAB(*) [KlonoPIN TAB(*)] 0.5 mg PO BEDTIME 12/22/12 [History Confirmed 06/03/19] Ibuprofen TAB* [Motrin TAB* 600 MG] 600 mg PO TID PRN 03/17/15 [History Confirmed 06/03/19] LevoCETirizine TAB (NF) [Xyzal TAB (NF)] 5 mg PO QAM 03/17/15 [History Confirmed 06/03/19] Magnesium Oxide [Magnesium] 500 mg PO QAM 03/17/15 [History Confirmed 06/03/19] Atenolol TAB* [Tenormin TAB* 25 MG] 12.5 mg PO QAM 08/16/15 [History Confirmed 06/03/19] Esomeprazole Magnesium [Nexium] 40 mg PO QAM 08/16/15 [History Confirmed ] Ezetimibe TAB* [Zetia TAB*] 10 mg PO QPM 08/16/15 [History Confirmed 06/03/19] Valsartan/HCTZ 80/12.5(NF) [Diovan Hct 80/12.5(NF)] 1 tab PO QAM 08/16/15 [ History Confirmed 06/03/19] Fenofibrate Nanocrystallized [Tricor] 154 mg PO QPM 12/15/17 [History Confirmed 06/03/19] Brimonidine P 0.15%(NF) [Alphagan P 0.15%(NF)] 1 drop BOTH EYES BID 05/03/19 [ History Confirmed 06/03/19] Cholecalciferol (Vitamin D3) [Vitamin D-3] 2,500 unit PO QAM 05/03/19 [History Confirmed 06/03/19] Netarsudil Mesylat/Latanoprost [Rocklatan 0.02%-0.005% Eye Drp] 1 drop BOTH EYES QPM 05/03/19 [History Confirmed 06/03/19] Propylene Glycol [Systane Complete] 1 drop BOTH EYES ONCE PRN 05/03/19 [History Confirmed 06/03/19] PMH/Surg Hx/FS Hx/Imm Hx Endocrine History: Dyslipidemia Cardiovascular History: Hypertension Psychological History: Anxiety, Depression - Surgical History Surgical History: Yes Surgery Procedure, Year, and Place: L achillies rupture repair, 2017, [facility] [place]. LEFT WRIST CARTILAGE REMOVED 2019 - Family History Known Family History: Positive: Other - Peptic ulcer disease - Social History Lives: With Family Alcohol Use: Daily Alcohol Amount: 1-2 BEERS AND OR WINE Substance Use Type: None Substance Use Comment - Amount & Last Used: 1 CUP COFFEE PER DAY Smoking Status (MU): Never Smoked Tobacco Review of Systems All Other Systems Reviewed And Are Negative: No Constitutional: Positive: Negative Skin: Positive: Other - Right hand laceration Respiratory: Positive: Negative Cardiovascular: Positive: Negative Neurological/Mental Status: Positive: Negative Psychological: Positive: Negative Physical Exam - Summary Physical Exam Summary: GENERAL: NAD. WDWN. No pain distress. SKIN: RIGHT HAND: At the ulnar aspect of the 5th MCP there is a 1.0cm linear partial thickness laceration. Mild active bleeding. No tendon or bony involvement. Clean appearing. NECK: Supple. Nontender. No lymphadenopathy. CHEST: No accessory muscle use. Breathing comfortably and in no distress. CV: Pulses intact. Cap refill <2seconds MSK: FROM with intact strength all fingers right hand NEURO: Alert. PSYCH: Age appropriate behavior. Triage Information Reviewed: Yes Vital Signs: Initial Vital Signs Temp 97.8 F 06/03/19 10:59 Pulse 59 06/03/19 10:59 Resp 17 06/03/19 10:59 BP 125/77 06/03/19 10:59 Pulse Ox 98 06/03/19 10:59 Vital Signs Reviewed: Yes Laceration Repair - Laceration Repair 1 Description: Linear Laceration Size After Repair: Length (cm) - 1.0 Anesthesia Used: 2.0% Lido Irrigation With Pressure Irrigation Device: Yes Closure Material: Sutures - #3 Closure Method: Single Layer Suture Of: Skin Suture Type: Prolene - 5-0 Laceration Course/Dx - Course/Dx Course Of Treatment: The procedure was explained to the pt and all questions were answered. A time out was performed, witnessed, and signed. The area was irrigated with 200mL sterile saline. 1mL of 2% lidocaine without epi was administered and good anesthetization was achieved. The wound was explored. In the usual sterile fashion, THREE 5-0 prolene interrupted sutures were placed. Homeostasis achieved. The wound was bandaged with a band-aid. Pt tolerated procedure well. - Diagnosis Provider Diagnosis: Laceration of right hand Discharge ED - Sign-Out/Discharge Documenting (check all that apply): Patient Departure All imaging exams completed and their final reports reviewed: No Studies - Discharge Plan Condition: Stable Disposition: HOME Patient Education Materials: Care For Your Stitches (ED), Laceration (ED) Referrals: Malorie Robertson MD [Primary Care Provider] - Additional Instructions: 1) Please keep the area bandage, clean, dry, and intact for the next 24- 48hours. Then change the bandage daily until sutures are removed. 2) If you develop a fever, colored or thick discharge, increased pain or swelling - please call your PCP or return for a wound check. 3) Please return in 8-10 days to have your THREE sutures removed. - Billing Disposition and Condition Condition: STABLE Disposition: Home
[2019-06-03] MEDS ORDERED: Lidocaine 2% PF * 5 ML VIAL INJ ONE (11:33)
== END 2019-06-03 12:25 | disposition home or self-care (01) ==
LOC: UCEAST 10:28
DX: S61.411A Laceration without foreign body of right hand, initial encounter (principal); Z91.09 Other allergy status, other than to drugs and biological substances; E78.5 Hyperlipidemia, unspecified; I10 Essential (primary) hypertension; F41.9 Anxiety disorder, unspecified; F32.9 Major depressive disorder, single episode, unspecified; Z79.899 Other long term (current) drug therapy; Z88.1 Allergy status to other antibiotic agents; W25.XXXA Contact with sharp glass, initial encounter; Y93.G1 Activity, food preparation and clean up; Y92.9 Unspecified place or not applicable
CPT/HCPCS: 12001; 99211; G0463